=== PATIENT | male | born 1990 | race Hispanic/Latino ===

== ENCOUNTER 2017-01-14 16:23 | Emergency (ER) | payer OTHER ==
[~2017-01-14] VITALS: Ht 177.8 cm; Wt 72.7 kg
[2017-01-14 18:07] VITALS: BP 113/78
--- NOTE | 2017-01-15 07:19 | ECGEPIP ---
Stationary ECG Study [facility] - ED Test Date: 2017-01-14 Pat Name: ZO MANCILLA Department: Room: - Gender: M Facilities Management Executive: : 1990 Requested By: Shane Marinelli Order Number: [id number] Reading MD: Abdias Chauhan Measurements Intervals [place] Rate: 76 P: 67 OK: 181 QRS: 75 QRSD: 100 T: 55 QT: 376 QTc: 423 Interpretive Statements SINUS RHYTHM BENIGN EARLY REPOLARIZATION NO PRIORS FOR COMPARISON Electronically Signed On 01-15-2017 7:19:03 EST by Abdias Chauhan
== END 2017-01-14 18:11 | disposition home or self-care (01) ==
LOC: M ED 16:23
DX: R55 Syncope and collapse (principal)